=== PATIENT | male | born 1955 | race Caucasian/White ===

== ENCOUNTER 2019-06-08 13:05 | Emergency (ER) | payer OTHER ==
[~2019-06-08] VITALS: Ht 190.5 cm; Wt 127.0 kg
[~2019-06-08 13:05] MED LIST: IBUP-1060 PO
[2019-06-08] MEDS ORDERED: MORPHINE SULFATE 10 MG/ML VIAL. IV ONE (14:15)
[2019-06-08] MEDS ORDERED: ONDANSETRON PF 4 MG/2 ML VIAL. IVP ONE (14:15)
[2019-06-08] MEDS ORDERED: KETOROLAC 30 MG/ML VIAL. IVP ONE (14:15)
[2019-06-08] MEDS ORDERED: IV NORMAL SALINE 1000ML BAG 1,000 ML IV ONE (14:30)
--- NOTE | 2019-06-08 14:49 | RAD ---
EXAM: Abdomen and pelvis CT without intravenous contrast. HISTORY: Left flank pain. TECHNIQUE: Computed tomographic images of the abdomen and pelvis were obtained without contrast. Multiplanar reformatting was performed. *One or more of the following individualized dose reduction techniques were utilized for this examination: 1. Automated exposure control. 2. Adjustment of the mA and/or kV according to patient size. 3. Use of iterative reconstruction technique. COMPARISON: None. FINDINGS: Evaluation of the lower thorax demonstrates no infiltrate or pleural effusion. There is coronary artery atherosclerosis. There is hepatic steatosis. No suspicious hepatic lesion is seen. There is cholelithiasis. The pancreas, spleen and adrenal glands are unremarkable. There is a 5.6 cm simple appearing cyst along the lower pole of the right kidney. No solid renal lesion is seen. There is mild left hydronephrosis and proximal hydroureter secondary to a 2 mm obstructing stone within the proximal ureter. There is associated perinephric and periureteral stranding. No additional renal or ureteral stone is seen. The bladder is empty. There is no appendicitis. There is no bowel obstruction. There is distal colonic diverticulosis. There is no evidence of diverticulitis. There is segmental wall thickening involving the distal colon and rectum likely due to peristalsis or under distention. The prostate is slightly prominent in size. There is slight asymmetric fat within the left inguinal canal. The aorta is normal in caliber. There are prominent retroperitoneal lymph nodes, the largest of which is seen on the right inferior to the renal veins measuring 2.8 cm in long axis. There is stranding at the root of mesentery and there are multiple prominent small mesenteric lymph nodes. There are degenerative changes involving the spine. There are bridging and partially bridging osteophytes throughout the visualized thoracic and lumbar levels. There is no fracture or suspicious osseous lesion. IMPRESSION: 1. Mild left hydronephrosis and proximal hydroureter secondary to a 2 mm stone within the proximal ureter. No additional renal stone is seen. 2. Colonic diverticulosis. 3. 5.6 cm right renal cyst. 4. Suspected hepatic steatosis. 5. Cholelithiasis. 6. Stranding at the root of the mesentery and multiple small prominent mesenteric lymph nodes. This is nonspecific and can be seen with mesenteric panniculus. There are also several prominent nonspecific retroperitoneal lymph nodes, the largest of which measures 2.8 cm in maximum dimension within the right right retroperitoneum. In the absence of known malignancy, these may be reactive in etiology. Electronically signed by: Sharon Osman MD (06/08/2019 2:46 PM) [place] [id number]
[2019-06-08 15:02] LABS: BASO % 0 % (0-3); EOS % 0 % (0-3); HEMOGLOBIN 16.4 g/dL (13.0-17.5); LYMPH # 0.6 x10^3/uL (1.0-4.8); LYMPH % 4 % (24-48); MEAN CORPUSCULAR HEMOGLOBIN 30 pg (25-35); MEAN CORPUSCULAR HGB CONC 33 g/dL (31-37); MEAN CORPUSCULAR VOLUME 91 fL (79-100); MONO # 0.2 x10^3/uL (0.0-1.1); MONO % 1 % (0-9); NEUT # 15.4 x10^3/uL (1.8-7.7); NEUT % 95 % (31-73); PLATELET COUNT 209 x10^3/uL (140-400); RED BLOOD COUNT 5.41 x10^6/uL (4.30-5.70); RED CELL DISTRIBUTION WIDTH 13.7 % (11.5-14.5); WHITE BLOOD COUNT 16.3 x10^3/uL (4.0-11.0)
[2019-06-08 15:15] LABS: CALCIUM 8.9 mg/dL (8.5-10.1); GFR 75.7; POTASSIUM 4.4 mmol/L (3.5-5.1)
[2019-06-08 15:20] LABS: ALBUMIN/GLOBULIN RATIO 1.1 (1.0-1.7); TOTAL BILIRUBIN 0.6 mg/dL (0.2-1.0); TOTAL PROTEIN 7.8 g/dL (6.4-8.2)
[2019-06-08 15:48] LABS: % BANDS 2 % (0-9); % LYMPHS 7 % (24-48); % MONOS 1 % (0-10); % SEGS 90 % (35-66)
[2019-06-08 15:51] LABS: PLT ESTIMATE ADEQUATE (ADEQUATE)
[2019-06-08 17:27] LABS: BILIRUBIN,URINE NEGATIVE (NEG); CLARITY,URINE CLOUDY; COLOR,URINE YELLOW; NITRITE,URINE NEGATIVE (NEG); PROTEIN,URINE NEGATIVE (NEG-TRACE); UROBILINOGEN,URINE 0.2 mg/dL (0.2 mg/dL)
[2019-06-08 17:39] LABS: BACTERIA,URINE 0 /HPF (0-FEW); HYALINE CASTS, URINE OCCASIONAL /HPF; RBC,URINE 20-40 /HPF (0-2); SQUAMOUS EPITHELIAL CELL,UR FEW /LPF
[2019-06-08 17:41] VITALS: BP 143/83
[2019-06-08] MEDS ORDERED: ONDA4TAB7 PO (17:46)
[2019-06-08] MEDS ORDERED: HYDR-2759 PO (17:46)
[2019-06-08] MEDS ORDERED: TAMS0.4C97 PO (17:46)
--- NOTE | 2019-06-11 18:28 | PHYS DOC ---
Past Medical History Past Medical History: High Cholesterol, Hypertension, Kidney Stone Past Surgical History: Tonsillectomy, Other Additional Past Surgical Histo: plastic surgery on both ears, reconstruction on left elbow Alcohol Use: Rarely Drug Use: None Adult General Chief Complaint Chief Complaint: FLANK PAIN HPI HPI Patient is a 63 year old male presents with acute onset left flank pain. Pain is described dull, cramping rated moderate to severe and is associated with nausea. No fever chills or sweats. No positions of comfort. No medications or therapy's prior to ED arrival. No other acute symptoms or complaints[] Review of Systems Review of Systems Review symptoms as per history of present illness. All other review symptoms are negative. All other systems were reviewed and found to be within normal limits, except as documented in this note. Current Medications Current Medications Current Medications Medications (Trade) Dose Ordered Sig/Alondra Start Time Stop Time Status Last Admin Dose Admin Ketorolac Tromethamine (Toradol 30mg Vial) 30 mg 1X ONCE 06/08/19 14:15 06/08/19 14:16 DC 06/08/19 14:26 30 MG Morphine Sulfate (Morphine Sulfate) 5 mg 1X ONCE 06/08/19 14:15 06/08/19 14:16 DC 06/08/19 14:23 5 MG Ondansetron HCl (Zofran) 4 mg 1X ONCE 06/08/19 14:15 06/08/19 14:16 DC 06/08/19 14:22 4 MG Sodium Chloride 1,000 ml @ 1,000 mls/hr 1X ONCE 06/08/19 14:30 06/08/19 15:29 DC 06/08/19 15:43 1,000 MLS/HR Allergies Allergies Allergies Coded Allergies Type Severity Reaction Last Updated Verified No Known Drug Allergies 02/02/14 No Physical Exam Physical Exam Constitutional: Well developed, well nourished, moderate discomfort secondary to pain [] HENT: Normocephalic, atraumatic, bilateral external ears normal, oropharynx moist, no oral exudates, nose normal. [] Eyes: PERRLA, EOMI, conjunctiva normal, no discharge. [] Neck: Normal range of motion, no tenderness, supple, no stridor. [] Cardiovascular:Heart rate regular rhythm, no murmur [] Lungs & Thorax: Bilateral breath sounds clear to auscultation [] Abdomen: Bowel sounds normal, soft, no tenderness. [] Skin: Warm, dry, no erythema, no rash. [] Back: No tenderness, no CVA tenderness. [] Extremities: No tenderness, no cyanosis, no clubbing, ROM intact, no edema. [] Neurologic: Alert and oriented X 3, normal motor function, normal sensory function, no focal deficits noted. [] Psychologic: Affect normal, judgement normal, mood normal. [] Current Patient Data Vital Signs Vital Signs Date Time Temp Pulse Resp B/P (MAP) Pulse Ox O2 Delivery O2 Flow Rate FiO2 06/08/19 17:41 62 16 143/83 (103) 97 Room Air 06/08/19 13:30 97.8 97.8 Lab Values Laboratory Tests Test 06/08/19 14:50 06/08/19 17:19 White Blood Count 16.3 x10^3/uL (4.0-11.0) H Red Blood Count 5.41 x10^6/uL (4.30-5.70) Hemoglobin 16.4 g/dL (13.0-17.5) Hematocrit 49.0 % (39.0-53.0) Mean Corpuscular Volume 91 fL (79-100) Mean Corpuscular Hemoglobin 30 pg (25-35) Mean Corpuscular Hemoglobin Concent 33 g/dL (31-37) Red Cell Distribution Width 13.7 % (11.5-14.5) Platelet Count 209 x10^3/uL (140-400) Neutrophils (%) (Auto) 95 % (31-73) H Lymphocytes (%) (Auto) 4 % (24-48) L Monocytes (%) (Auto) 1 % (0-9) Eosinophils (%) (Auto) 0 % (0-3) Basophils (%) (Auto) 0 % (0-3) Neutrophils # (Auto) 15.4 x10^3/uL (1.8-7.7) H Lymphocytes # (Auto) 0.6 x10^3/uL (1.0-4.8) L Monocytes # (Auto) 0.2 x10^3/uL (0.0-1.1) Eosinophils # (Auto) 0.0 x10^3/uL (0.0-0.7) Basophils # (Auto) 0.0 x10^3/uL (0.0-0.2) Segmented Neutrophils % 90 % (35-66) H Band Neutrophils % 2 % (0-9) Lymphocytes % 7 % (24-48) L Monocytes % 1 % (0-10) Platelet Estimate Adequate (ADEQUATE) Sodium Level 141 mmol/L (136-145) Potassium Level 4.4 mmol/L (3.5-5.1) Chloride Level 106 mmol/L (98-107) Carbon Dioxide Level 25 mmol/L (21-32) Anion Gap 10 (6-14) Blood Urea Nitrogen 15 mg/dL (8-26) Creatinine 1.0 mg/dL (0.7-1.3) Estimated GFR (Cockcroft-Gault) 75.7 BUN/Creatinine Ratio 15 (6-20) Glucose Level 130 mg/dL (70-99) H Calcium Level 8.9 mg/dL (8.5-10.1) Total Bilirubin 0.6 mg/dL (0.2-1.0) Aspartate Amino Transferase (AST) 16 U/L (15-37) Alanine Aminotransferase (ALT) 28 U/L (16-63) Alkaline Phosphatase 69 U/L (46-116) Total Protein 7.8 g/dL (6.4-8.2) Albumin 4.0 g/dL (3.4-5.0) Albumin/Globulin Ratio 1.1 (1.0-1.7) Urine Collection Type Unknown Urine Color Yellow Urine Clarity Cloudy Urine pH 5.0 Urine Specific [place] 1.025 Urine Protein Negative mg/dL (NEG-TRACE) Urine Glucose (UA) Negative mg/dL (NEG) Urine Ketones (Stick) Negative mg/dL (NEG) Urine Blood Large (NEG) Urine Nitrite Negative (NEG) Urine Bilirubin Negative (NEG) Urine Urobilinogen Dipstick 0.2 mg/dL (0.2 mg/dL) Urine Leukocyte Esterase Negative (NEG) Urine RBC 20-40 /HPF (0-2) Urine WBC 1-4 /HPF (0-4) Urine Squamous Epithelial Cells Few /LPF Urine Bacteria 0 /HPF (0-FEW) Urine Hyaline Casts Occasional /HPF Urine Mucus Marked /LPF Laboratory Tests 06/08/19 14:50 Laboratory Tests 06/08/19 14:50 EKG EKG [] Radiology/Procedures Radiology/Procedures [CT abdomen pelvis: 2 mm ureteral stone noted. Abnormal lymph nodes present. Course & Med Decision Making Course & Med Decision Making Pertinent Labs and Imaging studies reviewed. (See chart for details) [Symptoms significantly improved with treatment in the emergency department. Labs reviewed. Patient resting comfortably. Recommend supportive care with PCP follow-up to review abnormal CT results and for allergy referral when necessary. Return precautions reviewed. Patient verbalizes understanding agreement discharge instructions prior to departure.] Dragon Disclaimer Dragon Disclaimer This electronic medical record was generated, in whole or in part, using a voice recognition dictation system. Departure Departure Impression: Primary Impression: Ureteral calculus, left Additional Impression: Acute left flank pain Disposition: HOME, SELF-CARE Condition: GOOD Patient Instructions: Ureteral Colic, [id number] Additional Instructions: Please incease fluids and strain urine for stone. Take newly prescribed medications as directed. Follow-up with your PCP in 2-3 days for reevaluation. Return to the ED if new or worsening symptoms. Scripts Tamsulosin Hcl (FLOMAX) 0.4 Mg Cap.er.24h 1 CAP PO DAILY, #10 CAP 11 Refills Prov: LONA CABRERA DO 06/08/19 Ondansetron Hcl (ZOFRAN) 4 Mg Tablet 1 TAB PO Q6HRS, #10 TAB 0 Refills Prov: LONA CABRERA DO 06/08/19 Hydrocodone/Acetaminophen (Hydrocodone-Acetamin 5-325 mg) 1 Each Tablet 1 EACH PO Q6HRS, #15 TAB Prov: LONA CABRERA DO 06/08/19 Problem Qualifiers LONA CABRERA DO Jun 11, 2019 18:28
== END 2019-06-08 17:58 | disposition home or self-care (01) ==
LOC: ER 13:05
DX: N13.2 Hydronephrosis with renal and ureteral calculous obstruction (principal); K80.20 Calculus of gallbladder without cholecystitis without obstruction; K76.0 Fatty (change of) liver, not elsewhere classified; E78.00 Pure hypercholesterolemia, unspecified; I10 Essential (primary) hypertension
CPT/HCPCS: 36415; 74176; 80053; 81001; 85007; 85025; 96374; 96375; 99285; J1885; J2270; J2405; J7030